=== PATIENT | male | born 1950 | race Caucasian/White ===

== ENCOUNTER → 2018-06-15 08:37 | Outpatient (CLI) | payer SELFPAY ==
[2018-06-15 10:15] LABS: Alanine Aminotransferase 32 IU/L (21-72); Albumin 4.2 g/dL (3.5-5.0); Alkaline Phosphatase 84 U/L (38-126); Aspartate Aminotransferase 18 IU/L (17-59); BUN Creatinine Ratio 17.8 (6-22); Bilirubin Total 0.6 mg/dL (0.2-1.3); Blood Urea Nitrogen 16 mg/dL (9-20); Calcium 9.1 mg/dL (8.4-10.2); Carbon Dioxide 30 mmol/L (22-32); Chloride 101 mmol/L (98-107); Cholesterol 176 mg/dL (140-199); Estimated Glomerular Filt Rate > 60.0 mL/min (>60); Globulin 2.1 g/dL (1.7-4.1); Glucose 111 mg/dL (80-110); HDL Cholesterol 68 mg/dL (40-60); HEMOLYSIS < 15 (0-50); LDL Cholesterol Calculated 95 mg/dL (<100); Potassium 4.4 mmol/L (3.4-5.1); Sodium 140 mmol/L (137-145); Total Protein 6.3 g/dL (6.3-8.2); Triglycerides 64 mg/dL (35-150); Uric Acid 8.2 mg/dL (3.5-8.5)
[2018-06-15 10:37] LABS: Prostate Specific Antigen Scrn 5.05 ng/mL (0.1-4.0)
== END ==
PROVIDERS: PCP Internal Medicine; Visit Provider Internal Medicine
DX: G56.03 Carpal tunnel syndrome, bilateral upper limbs (principal); I10 Essential (primary) hypertension; M1A.9XX0 Chronic gout, unspecified, without tophus (tophi)
CPT/HCPCS: 36415; 80053; 80061; 84550; G0103

== ENCOUNTER → 2018-06-17 12:40 | Outpatient (CLI) | payer SELFPAY ==
[2018-06-21 14:50] LABS: PSA Free % 13 % (calc) (> 25); PSA, Total 5.4 ng/mL (< 4.1)
== END ==
PROVIDERS: PCP Internal Medicine; Visit Provider Internal Medicine
DX: R97.20 Elevated prostate specific antigen [PSA] (principal)
CPT/HCPCS: 36415; 84153; 84154

== ENCOUNTER 2018-10-04 15:05 | Emergency (ER) | payer SELFPAY ==
[2018-10-04] VITALS (18 sets, daily range): BP systolic 75–179; BP diastolic 45–116; PULSE 59–144; RESP 14–22; TEMP 36.7; O2SAT 97–100; BMI 39.3
--- NOTE | 2018-10-04 15:19 | DI.RAD.S_ITS ---
PROCEDURE: XR CHEST 1V INDICATIONS: chest pain TECHNIQUE: One view of the chest was acquired. COMPARISON: None. FINDINGS: Surgical changes and devices: None. Lungs and pleura: No pleural effusions or pneumothorax. Lungs are clear. Mediastinum: Mediastinal contours appear normal. Heart size is enlarged. Bones and chest wall: No suspicious bony lesions. Overlying soft tissues appear unremarkable. IMPRESSION: No acute cardiopulmonary pathology. Dictated by: Brock Quijano M.D. on 10/04/2018 at 15:55 Approved by: Brock Quijano M.D. on 10/04/2018 at 15:58
[2018-10-04 15:28] LABS: Add Manual Diff / Slide Review NO; Basophils Percent Auto 0.6 % (0-2); Eosinophils Percent Auto 3.5 % (2-4); Hematocrit 49.8 % (41-53); Hemoglobin 16.7 g/dL (13.5-17.5); Lymphocytes Percent Auto 34.7 % (25-40); Mean Corpuscular HGB Conc 33.6 % (30-36); Mean Corpuscular Hemoglobin 31.4 PG (26-34); Mean Corpuscular Volume 93.3 fL (80-100); Monocytes Percent Auto 7.3 % (3-14); Neutrophils Absolute Auto 5200 /uL (1500-7000); Neutrophils Percent Auto 53.9 % (50-75); Platelet Count 295 X10^3/uL (150-400); Red Blood Cell Count 5.33 X10^6/uL (4.5-5.9); Red Cell Distribution Width 13.3 % (11.6-14.8); White Blood Cell Count 9.7 X10^3/uL (4.5-11.0)
--- NOTE | 2018-10-04 15:28 | ED.CHESTPAIN ---
HPI - Chest Pain General Chief Complaint: Chest Pain Stated Complaint: chest pain Time Seen by Provider: 10/04/18 15:23 Source: patient Mode of arrival: ambulatory Limitations: no limitations History of Present Illness HPI narrative: Patient is a 67-year-old male who presents with chest pain. He is in atrial flutter. He has a started at 2:00 p.m.. He denies dizziness or lightheadedness. He has no shortness of breath. He does have some chest discomfort. He denies history of atrial flutter. He states he does have hard to control blood pressure and to metoprolol that. Is feeling fine earlier this morning. He has been well over the last few weeks he has never experienced this before. MD complaint: chest pain Duration: constant Severity: moderate Relieving factors: nothing Related Data Previous Rx's Medication Instructions Recorded metoprolol succinate 100 mg PO QDAY #90 ter 04/11/18 losartan 100 mg tablet 100 mg PO DAILY #30 tab 08/23/18 felodipine 5 mg PO QDAY #90 tab 08/29/18 Allergies Allergy/AdvReac Type Severity Reaction Status Date / Time clindamycin Allergy Unknown Verified 10/04/18 15:18 benazepril [BENAZEPRIL] AdvReac Intermediate skin face Verified 10/04/18 15:18 change lisinopril AdvReac Intermediate insomnia, Verified 10/04/18 15:18 irritability amlodipine [AMLODIPINE] AdvReac Mild fatigue Verified 10/04/18 15:18 Review of Systems Review of Systems GENERAL: Denies chills, fatigue, malaise, fever, sweats, travel HEENT: Denies sinus pain, ear pain, sore throat, difficulty swallowing, neck pain RESPIRATORY: Denies dyspnea, cough, wheezing, hemoptysis, sputum. CARDIOVASCULAR: See HPI GASTROINTESTINAL: Denies nausea, vomiting, abdominal pain, diarrhea, constipation, melena. : Denies dysuria, frequency, incontinence, hematuria, urinary retention, flank pain. MUSCULOSKELETAL: Denies weakness, joint pain, or bony pain SKIN: No rash, no erythema, no pruritus NEUROLOGIC: Denies weakness, dizziness, headache, numbness, change in speech, confusion PSYCHIATRIC: No concerning psychosocial issues. 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 rao/gnosticism: [employer] travel history: over 6 months ago ([place]) leisure activities: sports (Tennis, Pickleball.) and other (TV) Smoking Status: Never smoker Tobacco: How many years used: 0 quit status: quit date established (Never Started) second hand exposure: Yes (Childhood) alcohol intake: current (1-2 glass of Wine daily) substance use type: does not use Exam Initial Vital Signs Initial Vital Signs: Vital Signs Temperature 98.0 F 10/04/18 15:05 Pulse Rate 143 H 10/04/18 15:05 Respiratory Rate 21 10/04/18 15:05 Blood Pressure 160/116 H 10/04/18 15:05 Pulse Oximetry 97 10/04/18 15:05 GENERAL: Alert elderly male no acute distress HEENT: Head atraumatic,EOMI, pupils reactive, CARDIOVASCULAR: Tachycardic irregularly irregular no murmur RESPIRATORY: Breath sounds equal bilaterally, no wheezes rales or rhonchi. ABDOMEN: Soft, nontender. Normoactive bowel sounds all 4 quadrants. No guarding or rebound. EXTREMITIES: Normal range of motion, no clubbing or edema. Neurovascularly intact NEUROLOGICAL: Alert and oriented x4.Normal gait and speech. Cranial nerves II through XII grossly intact. SKIN: Warm, dry, no laceration, no petechiae, no rashes or lesions. Procedures Cardioversion Indication: Atrial flutter with RVR Cardiac rhythm prior to cardioversion: Atrial flutter with RVR Stability: Stable Number of attempts (shocks): 2 Joules used: 150 (1.) and 200 (2.) Cardiac rhythm post-cardioversion: Normal sinus rhythm rate 73 Patient tolerated procedure sedation: Well and No complications Procedural Sedation Patient Age: Patient is 5yrs or older Indication: other ASA Class: III Mallampati Airway Classification: Class III Preparation: quality assurance monitor final applied, pulse oximeter, capnometry used and supplemental O2 applied IV Etomidate dose (mg): 10 Time of Sedation (Min): 15 ED Sedation Level: Moderate (Concious) Patient Tolerated Procedure: Well and No complications Complications: none Course Orders Ordered: ED Orders 10/04/18 15:17 Complete Blood Count AUTO DIFF Stat Comprehensive Metabolic Panel Stat Lipase Stat Partial Thromboplastin Time Stat Prothrombin Time INR Stat Troponin & CK Cardiac Panel Stat 10/04/18 15:19 XR chest 1V Stat EKG-12 Lead Stat Discontinued Medications Aspirin (Aspirin Chew) 324 mg PO NOW ONE Stop: 10/04/18 16:48 Last Admin: 10/04/18 17:25 Dose: 324 mg Diltiazem HCl (Cardizem) 20 mg IV NOW ONE Stop: 10/04/18 15:35 Last Admin: 10/04/18 15:39 Dose: 10 mg Etomidate (Amidate) 10 mg IV NOW ONE Stop: 10/04/18 16:23 Last Admin: 10/04/18 16:26 Dose: 10 mg Sodium Chloride (Normal Saline 0.9%) 1,000 mls @ 1,000 mls/hr IV BOLUS ONE Stop: 10/04/18 16:33 Last Infusion: 10/04/18 17:26 Dose: 0 mls/hr Admin: 10/04/18 15:40 Dose: 1,000 mls/hr Metoprolol Tartrate (Lopressor) 5 mg IV NOW ONE Stop: 10/04/18 16:02 Last Admin: 10/04/18 16:05 Dose: 5 mg Vital Signs - 8 hr 10/04/18 15:05 10/04/18 15:39 10/04/18 16:25 Temperature 98.0 F Pulse Rate 143 H 144 H 139 H Respiratory Rate 21 19 Blood Pressure 160/116 H 179/106 H Blood Pressure [Right Arm] 140/99 H Pulse Oximetry 97 100 10/04/18 16:30 10/04/18 16:35 10/04/18 16:40 Temperature Pulse Rate 79 78 73 Respiratory Rate 16 16 22 Blood Pressure Blood Pressure [Right Arm] 179/90 H 154/89 H 144/78 H Pulse Oximetry 99 98 98 10/04/18 16:43 10/04/18 16:45 10/04/18 16:50 Temperature Pulse Rate 138 H 76 71 Respiratory Rate 14 18 16 Blood Pressure Blood Pressure [Right Arm] 129/71 127/70 Pulse Oximetry 98 98 10/04/18 16:55 10/04/18 17:00 10/04/18 17:05 Temperature Pulse Rate 76 72 76 Respiratory Rate 17 17 16 Blood Pressure Blood Pressure [Right Arm] 105/50 L 100/45 L 88/64 L Pulse Oximetry 97 98 97 10/04/18 17:10 10/04/18 17:17 10/04/18 17:22 Temperature Pulse Rate 68 65 59 L Respiratory Rate 18 20 17 Blood Pressure Blood Pressure [Right Arm] 75/49 L 80/51 L 84/67 L Pulse Oximetry 97 98 97 10/04/18 17:27 10/04/18 17:35 10/04/18 17:49 Temperature Pulse Rate 62 59 L 64 Respiratory Rate 18 16 18 Blood Pressure 120/74 Blood Pressure [Right Arm] 104/62 109/70 Pulse Oximetry 98 98 98 MDM - Chest Pain Lab Data Attestation: I reviewed the patient's lab results. Result diagrams: 10/04/18 15:17 10/04/18 15:17 Lab Results 10/04/18 10/04/18 10/04/18 Range/Units 15:17 15:17 15:17 WBC 9.7 (4.5-11.0) X10^3/uL RBC 5.33 (4.5-5.9) X10^6/uL Hgb 16.7 (13.5-17.5) g/dL Hct 49.8 (41-53) % MCV 93.3 (80-100) fL MCH 31.4 (26-34) PG MCHC 33.6 (30-36) % RDW 13.3 (11.6-14.8) % Plt Count 295 (150-400) X10^3/uL Neut % (Auto) 53.9 (50-75) % Lymph % (Auto) 34.7 (25-40) % Morton % (Auto) 7.3 (3-14) % Eos % (Auto) 3.5 (2-4) % Baso % (Auto) 0.6 (0-2) % Neut # (Auto) 5200 (4374-7045) /uL PT 11.4 (10.1-12.7) SECONDS INR 1.0 (0.9-1.3) APTT 34 (26.4-36.2) SECONDS Sodium 144 (137-145) mmol/L Potassium 4.0 (3.4-5.1) mmol/L Chloride 105 (98-107) mmol/L Carbon Dioxide 20 L (22-32) mmol/L BUN 15 (9-20) mg/dL Creatinine 0.80 (0.66-1.25) mg/dL Estimated GFR > 60.0 (>60) mL/min BUN/Creatinine Ratio 18.8 (6-22) Glucose 189 H (80-110) mg/dL Calcium 9.2 (8.4-10.2) mg/dL Total Bilirubin 0.4 (0.2-1.3) mg/dL AST 24 (17-59) IU/L ALT 34 (21-72) IU/L Alkaline Phosphatase 98 (38-126) U/L Total Creatine Kinase 127 (55-170) U/L CK-MB (CK-2) 1.53 (<2.37) ng/mL CK-MB (CK-2) Rel Index 1.2 L (1.5-5.0) % Troponin I < 0.012 (0.01-0.034) ng/mL Total Protein 7.4 (6.3-8.2) g/dL Albumin 4.9 (3.5-5.0) g/dL Globulin 2.5 (1.7-4.1) g/dL Albumin/Globulin Ratio 2.0 (1.0-2.8) Lipase 63 (23-300) U/L MDM Narrative Medical decision making narrative: Discharge Plan Departure Patient Disposition: Home Clinical Impression: Atrial flutter with rapid ventricular response Discharge Date/Time: 10/04/18 17:49 Interventions: ED Discharge Assessment Last Done: 10/04/18 17:49 Instructions: DI for Atrial Flutter Activity Restrictions/Additional Instructions: *You have been diagnosed with atrial flutter with rapid ventricular rate *What to do: He will need follow-up with your PCP *Continue to take medications as directed Aspirin 81 mg daily to help prevent stroke *Follow up with your primary care provider in 2-3 days *Return to ER if you should have chest pain heart palpitations dizziness lightheadedness or any new, worsening or concerning symptoms Prescriptions: No Action metoprolol succinate 100 mg tablet extended release 24 hr 100 mg PO QDAY Qty: 90 RF: 3 losartan 100 mg tablet 100 mg PO DAILY Qty: 30 RF: 5 felodipine 5 mg tablet extended release 24 hr 5 mg PO QDAY Qty: 90 RF: 3 Referrals: Godfrey Thao MD [Primary Care Provider] -
--- NOTE | 2018-10-04 15:30 | PC.NURSE ---
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
[2018-10-04 15:33] LABS: Prothrombin Time 11.4 SECONDS (10.1-12.7)
[2018-10-04 15:36] LABS: PTT Partial Thromboplastin Tim 34 SECONDS (26.4-36.2)
[2018-10-04 15:38] LABS: Alanine Aminotransferase 34 IU/L (21-72); Albumin 4.9 g/dL (3.5-5.0); Alkaline Phosphatase 98 U/L (38-126); Aspartate Aminotransferase 24 IU/L (17-59); BUN Creatinine Ratio 18.8 (6-22); Bilirubin Total 0.4 mg/dL (0.2-1.3); Blood Urea Nitrogen 15 mg/dL (9-20); Calcium 9.2 mg/dL (8.4-10.2); Carbon Dioxide 20 mmol/L (22-32); Chloride 105 mmol/L (98-107); Creatine Kinase 127 U/L (55-170); Estimated Glomerular Filt Rate > 60.0 mL/min (>60); Globulin 2.5 g/dL (1.7-4.1); Glucose 189 mg/dL (80-110); HEMOLYSIS 18 (0-50); Lipase 63 U/L (23-300); Sodium 144 mmol/L (137-145); Total Protein 7.4 g/dL (6.3-8.2)
[2018-10-04] MEDS: dilTIAZem 5 MG/ML SDV 20 MG IV (15:39)
[2018-10-04] MEDS: SODIUM CHLORIDE 0.9% 1,000 ML 1000 ML IV (15:40)
[2018-10-04 15:49] LABS: Troponin I < 0.012 ng/mL (0.01-0.034)
[2018-10-04 15:53] LABS: CKMB % Relative Index 1.2 % (1.5-5.0); Creatine Kinase MB 1.53 ng/mL (<2.37)
[2018-10-04] MEDS: METOPROLOL TARTRATE 5 MG/5 ML INJ IV (16:05)
[2018-10-04] MEDS: ETOMIDATE 2 MG/ML VIAL 10 MG IV (16:26)
--- NOTE | 2018-10-04 17:16 | PC.NURSE ---
notified of bp
[2018-10-04] MEDS: ASPIRIN 81 MG TAB 324 MG PO (17:25)
== END 2018-10-04 17:49 | disposition home or self-care (01) ==
PROVIDERS: Emergency Provider Emergency Medicine; Family Provider Internal Medicine; PCP Internal Medicine
DX: I48.91 Unspecified atrial fibrillation (principal)
CPT/HCPCS: 36591; 71045; 80053; 82550; 82553; 83690; 84484; 85025; 85610; 85730; 92960; 93005; 94770; 96361; 96374; 96375; 99152; 99285

== ENCOUNTER → 2018-11-08 16:06 | Outpatient (CLI) | payer SELFPAY ==
[2018-11-08 19:08] LABS: Free T4, Direct Thyroxine 1.17 ng/dL (0.78-2.19)
[2018-11-08 19:22] LABS: Thyroid Stimulating Hormone 1.41 uIU/mL (0.47-4.68)
== END ==
PROVIDERS: Family Provider Internal Medicine; PCP Internal Medicine; Visit Provider Internal Medicine
DX: I48.92 Unspecified atrial flutter (principal); R97.20 Elevated prostate specific antigen [PSA]
CPT/HCPCS: 36415; 84153; 84439; 84443

== ENCOUNTER → 2018-11-14 09:18 | Outpatient (CLI) | payer SELFPAY ==
--- NOTE | 2018-11-14 09:24 | DI.ECHO.S_ITS ---
[facility]---------+ [facility] +---------+ : : [address] : : : [place], [place] : : : : [id number] : : : : Phone: [phone] Echocardiogram Report + + :Name: RODNEY BROWN Study Date: 11/14/2018 Height: 72 in : :[facility] Exam Location: [facility] Weight: 284 lb : : Gender: Male BSA: 2.5 m2 : :: 1950 Age: 67 yrs BP: 132/90 mmHg: :Reason For Study: AFLUTTER : : Performed By: Robinson Hodge : :Referring: RODNEY JOSHI R : + + Interpretation Summary 1) Normal left ventricular size, thickness, wall motion, and systolic function (EF 55-60%). 2) Normal right ventricular size and function. 3) The left atrium is moderately dilated. 4) There is mild mitral regurgitation. 5) The ascending aorta is mildly enlarged at 4.2cm. 6) No prior Echo available for comparison. Procedure: A two-dimensional transthoracic echocardiogram with color flow and Doppler was performed. The study quality was technically adequate. There is no prior echocardiogram noted for this patient. The patient was in normal sinus rhythm during the exam. Left Ventricle: The left ventricle is normal in size. There is normal left ventricular wall thickness. The ejection fraction is estimated to be 55-60%. Left ventricular systolic function is normal. There are no focal wall motion abnormalities. Right Ventricle: The right ventricle is normal in size and function. Atria: The left atrium is moderately dilated. Right atrial size is normal. The interatrial septum is intact with no evidence for an atrial septal defect. Mitral Valve: The mitral valve leaflets are mildly calcified. There is mild mitral regurgitation. Aortic Valve: The aortic valve is normal in structure and function. The aortic valve is trileaflet. The aortic valve opens well. There is no aortic valve stenosis. No aortic regurgitation is present. Tricuspid Valve: The tricuspid valve is normal in structure and function. There is trace tricuspid regurgitation. Pulmonary artery pressures cannot be estimated because of the lack of a measurable TR jet velocity. Pulmonic Valve: The pulmonic valve is normal in structure and function. There is trace pulmonic regurgitation. Great Vessels: The aortic root is normal size. The ascending aorta is mildly enlarged. The pulmonary artery is normal size. The IVC is of normal diameter and collapses greater than 50% with a sniff. This suggests a low right atrial pressure of 3 mm Hg. Pericardium/ Pleura There is no pericardial effusion. There is no pleural effusion. MMode/2D Measurements & Calculations LVIDd: 4.8 cm LVOT diam: 2.4 cm LVIDs: 3.1 cm Ao root diam: 3.3 cm FS: 36.4 % Aortic Jxn: 3.2 cm EPSS: 0.44 cm asc Aorta Diam: 4.2 cm IVSd: 1.2 cm Ao Arch Diam (Prox Trans): 2.7 cm LVPWd: 1.2 cm LV marlow. diameter/BSA (cm/m^2): 1.9 LV sys. diameter/BSA (cm/m^2): 1.2 LA dimension: 4.4 cm RA long axis: 4.4 cm LA A2 area: 23.8 cm2 RA area: 17.2 cm2 LA A4 area: 27.2 cm2 RA vol: 57.3 ml LA length (vol): 6.3 cm RA : 23.2 ml/m2 LA vol: 86.7 ml IVC diam: 1.5 cm LA vol index: 35.0 ml/m2 Doppler Measurements & Calculations Ao V2 max: 115.5 cm/sec LVOT Max Rajesh: 77.3 cm/sec Ao V2 mean: 93.7 cm/sec LV V1 max P.4 mmHg Ao max P.3 mmHg LV V1 VTI: 16.9 cm Ao mean P.7 mmHg BONIFACIO(I,D): 3.0 cm2 Ao V2 VTI: 25.5 cm BONIFACIO(V,D): 3.0 cm2 sev ratio: 0.66 BONIFACIO indexed to BSA (cm^2/m^2): 1.2 MV E max rajesh: 59.7 cm/sec PA V2 max: 67.6 cm/sec MV A max rajesh: 74.3 cm/sec PA V2 mean: 48.7 cm/sec MV E/A: 0.80 PA mean P.0 mmHg Med Peak E' Rajesh: 5.1 cm/sec PA pr(Accel): 39.1 mmHg E/E' med: 11.8 PA Accel Time: 0.10 sec Lat Peak E' Rajesh: 6.9 cm/sec E/E' lat: 8.6 E/e' average: 10.2 MV dec time: 0.18 sec MR PISA radius: 0.49 cm SV(LVOT): 75.6 ml Reading Physician:01:10 PM
== END ==
PROVIDERS: PCP Internal Medicine; Visit Provider Internal Medicine
DX: I34.0 Nonrheumatic mitral (valve) insufficiency (principal); I48.92 Unspecified atrial flutter
CPT/HCPCS: 93306

== ENCOUNTER 2020-05-12 06:27 | Emergency (ER) | payer SELFPAY ==
[2020-05-12 06:35] VITALS: BP 161/105; PULSE 84; RESP 20; TEMP 36.9; O2SAT 98; BMI 33.9
--- NOTE | 2020-05-12 06:43 | DI.RAD.S_ITS ---
PROCEDURE: XR CHEST 1V INDICATIONS: palpitations TECHNIQUE: One view of the chest was acquired. COMPARISON: [facility], KERRY, ABDOMEN ACUTE SERIES, 01/30/2016, 15:40. [facility], KERRY, XR CHEST 1V, 10/04/2018, 15:57. FINDINGS: Surgical changes and devices: None. Lungs and pleura: Lungs are abnormal with an interstitial prominence and focal alveolar consolidation at the right lung base.. No pleural effusions or pneumothorax. Mediastinum: Mediastinal contours appear normal. Heart size is at the upper limits of normal. Bones and chest wall: No suspicious bony lesions. Overlying soft tissues appear unremarkable. IMPRESSION: Suspect prior smoking history given the pattern of interstitial prominence present and reference to comparison prior plain films. Mild or early pneumonia is suspected at the right lower lung in an area previously normal in aeration. It is unclear, however, whether lung scarring in that area has developed and scarring alternatively could explain that appearance. Dictated by: Layton Menon M.D. on 05/12/2020 at 7:35 Approved by: Layton Menon M.D. on 05/12/2020 at 7:37
[2020-05-12 07:00] VITALS: BP 152/94; PULSE 68; RESP 14
[2020-05-12 07:06] LABS: Add Manual Diff / Slide Review NO; Basophils Absolute Auto 100 /uL (0-100); Basophils Percent Auto 1.1 % (0-2); Eosinophils Absolute Auto 400 /uL (0-450); Eosinophils Percent Auto 5.5 % (2-4); Hematocrit 44.7 % (41-53); Hemoglobin 15.2 g/dL (13.5-17.5); Lymphocytes Absolute Auto 2300 /uL (1100-4500); Lymphocytes Percent Auto 35.1 % (25-40); Mean Corpuscular HGB Conc 34.1 % (30-36); Mean Corpuscular Hemoglobin 30.7 PG (26-34); Monocytes Absolute Auto 700 /uL (0-900); Monocytes Percent Auto 9.7 % (3-14); Neutrophils Absolute Auto 3300 /uL (1500-7000); Neutrophils Percent Auto 48.6 % (50-75); Platelet Count 216 X10^3/uL (150-400); Red Blood Cell Count 4.97 X10^6/uL (4.5-5.9); Red Cell Distribution Width 13.4 % (11.6-14.8); White Blood Cell Count 6.7 X10^3/uL (4.5-11.0)
[2020-05-12] MEDS: SODIUM CHLORIDE 0.9% 1,000 ML 150 ML IV (07:06)
[2020-05-12 07:08] LABS: Alanine Aminotransferase 19 IU/L (<50); Albumin 4.3 g/dL (3.5-5.0); Alkaline Phosphatase 80 U/L (38-126); Aspartate Aminotransferase 23 IU/L (17-59); BUN Creatinine Ratio 20.5 (6-22); Bilirubin Total 0.7 mg/dL (0.2-1.3); Blood Urea Nitrogen 15 mg/dL (9-20); Carbon Dioxide 23 mmol/L (22-32); Chloride 104 mmol/L (98-107); Creatine Kinase 97 U/L (55-170); Estimated Glomerular Filt Rate > 60.0 mL/min (>60); Globulin 2.2 g/dL (1.7-4.1); Glucose 107 mg/dL (80-110); HEMOLYSIS 38 (0-50); Lipase 50 U/L (23-300); Sodium 135 mmol/L (137-145); Total Protein 6.5 g/dL (6.3-8.2)
[2020-05-12 07:10] LABS: D Dimer < 200 ng/mL (<230)
[2020-05-12 07:20] LABS: NT-proBNP (BNP-Adult 18+) 115 pg/mL (<125); Troponin I < 0.012 ng/mL (0.01-0.034)
[2020-05-12 07:30] VITALS: BP 169/86; PULSE 66; RESP 16
[2020-05-12 08:00] VITALS: BP 162/78; PULSE 60; RESP 15; O2SAT 96
--- NOTE | 2020-05-12 08:00 | ED_ITS ---
HPI - Arrhythmia/Palpitations General Chief Complaint: Arrhythmia/Palpitations Stated Complaint: afib Time Seen by Provider: 05/12/20 06:30 Source: patient Mode of arrival: Ambulatory Limitations: no limitations History of Present Illness HPI narrative: CC:Palpitations HPI: Patient is a 69-year-old male who has a history of atrial fibrillation and hypertension. He is currently on Eliquis for his atrial fib. His atrial fibrillation is paroxysmal. Two nights ago he developed rapid heart rate. He drink extra fluids and by the morning his atrial fibrillation and palpitations had resolved. Yesterday he was fine all day. However, at nighttime he again developed palpitations with rapid heart rate running approximately 98. He drank fluids but in the morning he still had an irregular rapid heart rate. He denied any chest pain or chest discomfort, headache, dizziness or shortness of breath. He denied any neck discomfort, jaw discomfort shoulder or arm discomfort. He is currently on Toprol XL 100 mg for his heart rate. He was also complaining and bothered by his systolic and diastolic blood pressures. Both were higher than he has experience. He denied any chest pain headache change in vision or e xcessive shortness of breath. He has had no recent fever chills or sweats. No change in vision no abdominal pain nausea vomiting no urinary symptoms. When I was interviewing the patient is heart rate was 66 blood pressure 152/94. He denies ever smoking cigarettes drinks alcohol socially with a glass of wine with dinner and no use of drugs or marijuana. He denies being a diabetic having a previous stroke or myocardial infarction or history of asthma. He does admit to history of hypertension. Related Data Home Medications Medication Instructions Recorded Confirmed apixaban 5 mg tablet 5 mg PO BID 02/01/19 triamterene 37.5 1 cap PO DAILY 02/02/19 mg-hydrochlorothiazide 25 mg capsule candesartan 4 mg tablet 4 mg PO DAILY 11/07/19 11/07/19 Previous Rx's Medication Instructions Recorded metoprolol succinate 100 mg PO QDAY #90 ter 04/11/18 diltiazem HCl [Cardizem CD] 120 mg PO DAILY #10 cap 05/12/20 diltiazem HCl [Cardizem] 30 mg PO TID PRN #20 tab 05/12/20 Allergies Allergy/AdvReac Type Severity Reaction Status Date / Time clindamycin Allergy Unknown Verified 11/07/19 10:29 benazepril [BENAZEPRIL] AdvReac Intermediate skin face Verified 11/07/19 10:29 change lisinopril AdvReac Intermediate insomnia, Verified 11/07/19 10:29 irritability amlodipine [AMLODIPINE] AdvReac Mild fatigue Verified 11/07/19 10:29 Review of Systems Review of Systems Narrative: Review of systems were all negative except for those mentioned in the history of present illness. 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 rao/sikh: Shinto travel history: over 6 months ago ([place]) leisure activities: sports (Tennis, Pickleball.) and other (TV) Smoking Status: Never smoker Tobacco: How many years used: 0 quit status: quit date established (Never Started) second hand exposure: Yes (Childhood) alcohol intake: current (1-2 glass of Wine daily) substance use type: does not use Smoking Status: Never smoker alcohol intake frequency: holidays/special occasions only Substance Use Type: does not use Exam Narrative Exam Narrative: PHYSICAL EXAM: CONSTITUTIONAL: Awake, Alert, Oriented, Coherent, Cooperative mildly anxious. HEAD: AT/NC EENT: PERRL, FROM of eyes, no discharge, no nystagmus, conjunctiva without pallor NOSE:No epistaxis or nasal drainage MOUTH:Oral mucosa is moist and pink. NECK: Supple, no obvious JVD, Trachea is midline without stridor, . SPINE: Palpationof the cervical, Thoracic, Lumbar or Sacral spine reveals no gross deformity or tenderness. No CVA tenderness. THORAX: No deformity, retractions, chest wall tenderness. LUNGS: Clear, symmetrical breath sounds without respiratory distress. HEART: Normal heart tones, regular rhythm and rate without murmur. ABDOMEN: Soft, non-tender, no guarding, rebound, rigidity or palpable mass. EXTREMITIES: No edema, deformity, tenderness or cyanosis. SKIN: No rash, bruising, petechiae or purpura. NEURO: Awake, alert, oriented, conversive, cranial nerves II-XII are symmetrical , moves all 4 extremities and is ambulatory. MENTAL HEALTH: Does not appear anxious or depressed. Initial Vital Signs Initial Vital Signs: Vital Signs Temperature 98.5 F 05/12/20 06:35 Pulse Rate 84 05/12/20 06:35 Respiratory Rate 20 05/12/20 06:35 Blood Pressure 161/105 H 05/12/20 06:35 Pulse Oximetry 98 05/12/20 06:35 Course Course Course Narrative: 804: Getting ready to discharge the patient the patient's showed me his record of his blood pressures and rapid heart rate. His rapid heart rate is most of the time in the range of 70-80 with a rare 98. The heart rate never went higher than 100. We worry about the heart rate with atrial fibrillation when the ventricular rate is greater than 120. It is not unusual with atrial fib to have episodes in which the heart rate runs between 100 and 110. He was informed that if he develops discomfort anxiety when his heart rate is running greater than 100 he can take the Cardizem. Orders Ordered: Discontinued Medications Diltiazem HCl (Cardizem Cd) 120 mg PO NOW ONE Stop: 05/12/20 07:56 Last Admin: 05/12/20 08:07 Dose: Not Given Documented by: BRENDA Sodium Chloride (Normal Saline 0.9%) 1,000 mls @ 150 mls/hr IV CONT MEGHA Last Admin: 05/12/20 07:06 Dose: 150 mls/hr Documented by: CRIS Vital Signs Vital signs: Vital Signs - 8 hr 05/12/20 06:35 05/12/20 07:00 05/12/20 07:30 Temperature 98.5 F Pulse Rate 84 68 66 Respiratory Rate 20 14 16 Blood Pressure 161/105 H 152/94 H 169/86 H Pulse Oximetry 98 MDM - Arrhythmia/Palpitations Medical Records Attestation: I reviewed the patient's medical records. Lab Data Attestation: I reviewed the patient's lab results. Result diagrams: 05/12/20 06:50 05/12/20 06:50 Labs: Lab Results 05/12/20 05/12/20 05/12/20 Range/Units 06:50 06:50 06:50 WBC 6.7 (4.5-11.0) X10^3/uL RBC 4.97 (4.5-5.9) X10^6/uL Hgb 15.2 (13.5-17.5) g/dL Hct 44.7 (41-53) % MCV 90.0 (80-100) fL MCH 30.7 (26-34) PG MCHC 34.1 (30-36) % RDW 13.4 (11.6-14.8) % Plt Count 216 (150-400) X10^3/uL Neut % (Auto) 48.6 L (50-75) % Lymph % (Auto) 35.1 (25-40) % [place] % (Auto) 9.7 (3-14) % Eos % (Auto) 5.5 H (2-4) % Baso % (Auto) 1.1 (0-2) % Neut # (Auto) 3300 (9369-3541) /uL Lymph # (Auto) 2300 (7110-2064) /uL [place] # (Auto) 700 (0-900) /uL Eos # (Auto) 400 (0-450) /uL Baso # (Auto) 100 (0-100) /uL D-Dimer < 200 (<230) ng/mL Sodium 135 L (137-145) mmol/L Potassium 4.0 (3.4-5.1) mmol/L Chloride 104 (98-107) mmol/L Carbon Dioxide 23 (22-32) mmol/L BUN 15 (9-20) mg/dL Creatinine 0.73 (0.66-1.25) mg/dL Estimated GFR > 60.0 (>60) mL/min BUN/Creatinine Ratio 20.5 (6-22) Glucose 107 (80-110) mg/dL Calcium 9.0 (8.4-10.2) mg/dL Total Bilirubin 0.7 (0.2-1.3) mg/dL AST 23 (17-59) IU/L ALT 19 (<50) IU/L Alkaline Phosphatase 80 (38-126) U/L Total Creatine Kinase 97 (55-170) U/L CK-MB (CK-2) TNP CK-MB (CK-2) Rel Index TNP Troponin I < 0.012 (0.01-0.034) ng/mL NT-Pro-B Natriuret Pep 115 (<125) pg/mL Total Protein 6.5 (6.3-8.2) g/dL Albumin 4.3 (3.5-5.0) g/dL Globulin 2.2 (1.7-4.1) g/dL Albumin/Globulin Ratio 2.0 (1.0-2.8) Lipase 50 (23-300) U/L ECG Data Attestation: I personally reviewed and interpreted this ECG as follows: Interpretation: The patient's EKG obtained at 6:32 a.m. reveals a normal sinus rhythm with a QS wave in lead III and V1. T-waves are inverted in lead III and V1. There are no other acute diagnostic ST segment changes. The patient's ventricular rate is 82 p.r. interval is borderline prolonged at 202 milliseconds QRS duration is mildly prolonged at 104 milliseconds QTC is 434 milliseconds. The EKG otherwise looks normal. Discharge Plan Departure Patient Disposition: Home Clinical Impression: Essential hypertension, Palpitations, Paroxysmal atrial fibrillation Discharge Date/Time: 05/12/20 08:33 Activity Restrictions/Additional Instructions: 1. As per our discussion, try and check your blood pressure at least once a day and trying check it at about the same time per day. G half your diastolic blood pressure and systolic blood pressure values on graph paper. Find out from your computer applications instructor and/or primary care physician at what range they want her diastolic blood pressure and systolic blood pressure in draw lines straight across the graph paper so that you can see the pattern where your blood pressure falls. Your blood pressure medicine does not keep your blood pressure in the range 100% of the time. The majority of time it does. You will be able to see this pattern on the graph paper. 2. The more you check your blood pressure your blood pressure is going to continue to rise. If you are subconsciously anxious or worried about something your blood pressure will be high. We worry about blood pressure especially when it is above 200 if you are symptomatic. The symptoms are headache chest pain shortness of breath weakness and fatigue changes in your vision or any potential signs of a stroke. Otherwise your blood pressure may be just incidentally high because of other life circumstances. Graph the result on year graph paper record. 3. Call and make a follow-up appointment with your primary care physician within 48-72 hours and or your computer applications instructor. You may need to have a repeat Holter monitor to check how often your flipping in and out of atrial fib and normal sinus rhythm. 4. Be sure you are taking your Eliquis to prevent any possible stroke. 5. Continue to take the rest of your medications. 6. If you develop a rapid heart rate/palpitations greater than 100-120, you can take Cardizem 30 mg tablet, 1 tab orally. If you develop palpitations and rapid heart rate associated with chest pain that lasts longer than 10-15 minutes, shortness of breath and or dizziness or lightheadedness, you need to return to the emergency department. 7. Your EKG reveals a normal sinus rhythm without any abnormalities. 8. While on the Cardizem if you develop excessive dizziness lightheadedness, feeling faint or excessive fatigue you need to discontinue the medication and follow-up with your physicians. This medicine is prescribed to control your break through episodes of rapid atrial fib. Prescriptions: New diltiazem HCl [Cardizem CD] 120 mg capsule,extended release 24hr 120 mg PO DAILY Qty: 10 RF: 1 diltiazem HCl [Cardizem] 30 mg tablet 30 mg PO TID PRN (Reason: rapid breakthrough palpitations) Qty: 20 RF: 0 No Action metoprolol succinate 100 mg tablet extended release 24 hr 100 mg PO QDAY Qty: 90 RF: 3 Eliquis 5 mg tablet 5 mg PO BID RF: 0 triamterene-hydrochlorothiazid 37.5-25 mg capsule 1 cap PO DAILY RF: 0 candesartan 4 mg tablet 4 mg PO DAILY RF: 0 Referrals: Godfrey Thao MD [Primary Care Provider] -
--- NOTE | 2020-06-21 08:25 | PC.NURSE ---
late entry: per Melia RN, pt's IV Normal Saline Completed at 0800 on 05/12/2020
== END 2020-05-12 08:33 | disposition home or self-care (01) ==
PROVIDERS: Emergency Medicine; Emergency Provider Emergency Medicine; PCP Internal Medicine
DX: I10 Essential (primary) hypertension (principal); R00.2 Palpitations; I48.0 Paroxysmal atrial fibrillation; Z79.01 Long term (current) use of anticoagulants
CPT/HCPCS: 36415; 71045; 80053; 82550; 83690; 83880; 84484; 85025; 85379; 93005; 96360; 99284

== ENCOUNTER → 2021-01-27 11:54 | Outpatient (CLI) | payer SELFPAY | PROVIDERS: PCP Internal Medicine; Visit Provider Student in an Organized Health Care Education/Training Program | DX: N34.3 Urethral syndrome, unspecified (principal) | CPT/HCPCS: 87077; 87086; 87186 ==

== ENCOUNTER → 2021-02-14 09:52 | Outpatient (CLI) | payer SELFPAY ==
[2021-02-14 11:00] LABS: Alanine Aminotransferase 23 IU/L (<50); Albumin 4.3 g/dL (3.5-5.0); Albumin Globulin Ratio 1.5 (1.0-2.8); BUN Creatinine Ratio 18.8 (6-22); Bilirubin Total 0.6 mg/dL (0.2-1.3); Blood Urea Nitrogen 15 mg/dL (9-20); Calcium 9.1 mg/dL (8.4-10.2); Carbon Dioxide 27 mmol/L (22-32); Chloride 101 mmol/L (98-107); Estimated Glomerular Filt Rate > 60.0 mL/min (>60); Globulin 2.9 g/dL (1.7-4.1); Glucose 103 mg/dL (80-110); Sodium 135 mmol/L (137-145); Total Protein 7.2 g/dL (6.3-8.2)
[2021-02-14 11:03] LABS: HEMOLYSIS 94 (0-50)
[2021-02-14 11:05] LABS: Aspartate Aminotransferase 30 IU/L (17-59); Potassium 4.4 mmol/L (3.4-5.1)
[2021-02-14 11:06] LABS: Alkaline Phosphatase 69 U/L (38-126)
== END ==
PROVIDERS: PCP Internal Medicine; Referring Provider Internal Medicine Cardiovascular Disease; Visit Provider Internal Medicine Cardiovascular Disease
DX: I48.3 Typical atrial flutter (principal); I10 Essential (primary) hypertension
CPT/HCPCS: 36415; 80053

== ENCOUNTER 2021-05-14 23:32 | Emergency (ER) | payer SELFPAY ==
[2021-05-14 23:59] VITALS: BP 166/100; PULSE 86; TEMP 37.1; O2SAT 94
[2021-05-15] VITALS (9 sets, daily range): BP systolic 160–172; BP diastolic 100–102; PULSE 70–101; RESP 20–24; TEMP 37.2; O2SAT 94–98
--- NOTE | 2021-05-15 00:16 | ED_ITS ---
HPI - General Adult General Chief complaint: Abdominal Pain Stated complaint: states food poisoning Time Seen by Provider: 05/15/21 00:05 Source: patient Mode of arrival: Ambulatory History of Present Illness HPI narrative: Patient is a 70-year-old male who was on anticoagulation for atrial fibrillation who is here for what he thinks is food poisoning. He states that after eating dinner this evening he started to develop left-sided abdominal discomfort. He has not had any diarrhea. Has had some nausea but no vomiting. No prior abdominal surgeries. He states that the symptoms did not get worse when he touches his abdomen. Denies any urinary symptoms. Related Data Home Medications Medication Instructions Recorded Confirmed apixaban 5 mg tablet (Eliquis) 5 mg PO BID 02/01/19 02/06/21 triamterene 37.5 1 cap PO DAILY 02/02/19 02/06/21 mg-hydrochlorothiazide 25 mg capsule candesartan 8 mg tablet 8 mg PO DAILY 12/17/20 02/06/21 Previous Rx's Medication Instructions Recorded metoprolol succinate 100 mg 100 mg PO QDAY #90 ter 04/11/18 tablet,extended release 24 hr diltiazem HCl 120 mg 120 mg PO DAILY #10 cap 05/12/20 capsule,extended release 24 hr (Cardizem CD) diltiazem HCl 30 mg tablet 30 mg PO TID PRN #20 tab 05/12/20 (Cardizem) Allergies Allergy/AdvReac Type Severity Reaction Status Date / Time clindamycin Allergy Unknown Verified 02/06/21 14:54 benazepril [BENAZEPRIL] AdvReac Intermediate skin face Verified 02/06/21 14:54 change lisinopril AdvReac Intermediate insomnia, Verified 02/06/21 14:54 irritability amlodipine [AMLODIPINE] AdvReac Mild fatigue Verified 02/06/21 14:54 Review of Systems Constitutional Constitutional: Reports system reviewed and no additional complaints, except as documented Cardiovascular Cardiovascular: Reports system reviewed and no additional complaints, except as documented Respiratory Respiratory: Reports system reviewed and no additional complaints, except as documented Gastrointestinal Gastrointestinal: Reports as per HPI Genitourinary Genitourinary: Reports system reviewed and no additional complaints, except as documented, Denies testicular pain, Denies urinary frequency and Denies urinary hesitancy Musculoskeletal Musculoskeletal: Reports system reviewed and no additional complaints, except as documented Integumentary/Breasts Skin/Breast: Reports system reviewed and no additional complaints, except as doc umented Neurologic Neurologic: Reports system reviewed and no additional complaints, except as documented Endocrine Endocrine: Reports system reviewed and no additional complaints, except as documented Hematologic/Lymphatic On Anticoagulants: No Allergic/Immunologic Allergic/Immunologic: Reports system reviewed and no additional complaints, except as documented Patient History Medical History Atrial flutter Bilateral carpal tunnel syndrome (08/05/17) Chronic gout without tophus (06/20/15) Elevated PSA Essential hypertension Impaired glucose metabolism Left inguinal hernia Subclavian steal syndrome Surgical History Hx of laminectomy Social History marital status: number of children: 0 household members: spouse lives independently: Yes caregiver/support person: No housing: house pets and animals: No education level: college occupational status: other 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 rao/sabianism: Baptist travel history: over 6 months ago leisure activities: sports and other Smoking Status: Never smoker Tobacco: How many years used: 0 quit status: quit date established second hand exposure: Yes (Childhood) alcohol intake: current substance use type: does not use Smoking Status: Never smoker alcohol intake frequency: holidays/special occasions only Substance Use Type: does not use Exam Initial Vital Signs Initial Vital Signs: Vital Signs Temperature 98.8 F 05/14/21 23:59 Pulse Rate 86 05/14/21 23:59 Blood Pressure 166/100 H 05/14/21 23:59 Pulse Oximetry 94 05/14/21 23:59 Const General: cooperative and healthy appearing [facility] Head: normal to inspection and normocephalic Eyes General: appearance normal, both eyes and all related structures Chest Chest: normal inspection of the chest Resp Effort & Inspection: normal respiratory effort Auscultation: clear to auscultation bilaterally Cardio Rate: regular rate GI Inspection: normal to inspection Palpation: soft, No firm and No tender Skin General: no rashes or lesions noted Neuro General: patient alert, patient awake, patient oriented x3 and moves all extremities Extrem General: normal to inspection and capillary refill normal Psych Appearance: grossly normal and well kempt Course Orders Ordered: ED Orders 05/15/21 00:04 EKG-12 Lead Stat 05/15/21 00:17 CT abdomen pelvis w con Stat 05/15/21 00:23 Complete Blood Count AUTO DIFF Stat Comprehensive Metabolic Panel Stat Lipase Stat 05/15/21 00:41 Urine Microscopic Stat Discontinued Medications Hydrocodone Bitart/Acetaminophen (Hydrocodone/Acet 5/325 Prepack) 1 bottle MISC SEEINSTR ONE Stop: 05/15/21 02:13 Last Admin: 05/15/21 02:52 Dose: 1 bottle Documented by: RUDY Sodium Chloride (Normal Saline 0.9%) 1,000 mls @ 1,000 mls/hr IV BOLUS ONE Stop: 05/15/21 01:16 Last Infusion: 05/15/21 02:52 Dose: 0 mls/hr Documented by: Admin: 05/15/21 00:29 Dose: 1,000 mls/hr Documented by: RUDY Ondansetron HCl (Ondansetron 4 Mg Odt Prepack) 1 bottle MISC SEEINSTR ONE Stop: 05/15/21 02:13 Last Admin: 05/15/21 02:52 Dose: 1 bottle Documented by: RUDY Vital Signs Vital signs: Vital Signs - 8 hr 05/14/21 23:59 05/15/21 00:00 05/15/21 00:01 Temperature 98.8 F 99.0 F Pulse Rate 86 93 H 70 Respiratory Rate 20 Blood Pressure 166/100 H 169/101 H 172/100 H Pulse Oximetry 94 94 97 05/15/21 00:30 05/15/21 01:00 05/15/21 01:30 Temperature Pulse Rate 87 94 H 95 H Respiratory Rate 24 Blood Pressure Pulse Oximetry 96 95 94 05/15/21 02:00 05/15/21 02:58 05/15/21 02:59 Temperature Pulse Rate 96 H 96 H 98 H Respiratory Rate Blood Pressure 160/102 H Pulse Oximetry 97 98 95 05/15/21 03:00 Temperature Pulse Rate 101 H Respiratory Rate Blood Pressure Pulse Oximetry 96 Medical Decision Making Lab Data Lab results reviewed: Yes I reviewed the patient's lab results. Result diagrams: 05/15/21 00:23 05/15/21 00:23 Labs: Lab Results 05/15/21 05/15/21 05/15/21 Range/Units 00:23 00:23 00:41 WBC 11.6 H (4.5-11.0) X10^3/uL RBC 5.13 (4.5-5.9) X10^6/uL Hgb 15.7 (13.5-17.5) g/dL Hct 46.8 (41-53) % MCV 91.3 (80-100) fL MCH 30.6 (26-34) PG MCHC 33.6 (30-36) % RDW 13.7 (11.6-14.8) % Plt Count 268 (150-400) X10^3/uL Neut % (Auto) Not Reportable Lymph % (Auto) Not Reportable [place] % (Auto) Not Reportable Eos % (Auto) Not Reportable Baso % (Auto) Not Reportable Lymph # (Auto) Not Reportable [place] # (Auto) Not Reportable Baso # (Auto) Not Reportable Total Counted 100 Seg Neutrophils % 77.0 H (38-70) % Band Neutrophils % 5.0 (3-7) % Lymphocytes % (Manual) 15.0 L (25-45) % Atypical Lymphs % 3.0 H ( - 0) % Neutrophils # (Manual) 9512 H (7614-0090) /uL RBC Morphology Normal morphology Sodium 137 (137-145) mmol/L Potassium 4.2 (3.4-5.1) mmol/L Chloride 104 (98-107) mmol/L Carbon Dioxide 24 (22-32) mmol/L BUN 23 H (9-20) mg/dL Creatinine 0.96 (0.66-1.25) mg/dL Estimated GFR > 60.0 (>60) mL/min BUN/Creatinine Ratio 24.0 H (6-22) Glucose 177 H (80-110) mg/dL Calcium 9.2 (8.4-10.2) mg/dL Total Bilirubin 0.3 (0.2-1.3) mg/dL AST 25 (17-59) IU/L ALT 22 (<50) IU/L Alkaline Phosphatase 102 (38-126) U/L Total Protein 7.1 (6.3-8.2) g/dL Albumin 4.4 (3.5-5.0) g/dL Globulin 2.7 (1.7-4.1) g/dL Albumin/Globulin Ratio 1.6 (1.0-2.8) Lipase 72 (23-300) U/L Urine RBC 1-5/hpf (0-5/HPF) Urine WBC 0-1/hpf (0-5/HPF) Urine Bacteria None seen (None) Ur Culture Indicated? Cult not indicated Urine Dip Bedside Urine Glucose 250 mg/dl Bedside Urine Bilirubin - Negative Bedside Urine Ketone +/- 5 Urine Specific [place] 1.025 Bedside Urine Occult Blood ++ Bedside Urine pH 6.0 Bedside Urine Protein - Negative Bedside Urine Urobilinogen - Negative Bedside Urine Nitrite - Negative Bedside Urine Leukocytes - Negative Esterase Point of care testing: Urine Dip Bedside Urine Glucose 250 mg/dl Bedside Urine Bilirubin - Negative Bedside Urine Ketone +/- 5 Urine Specific [place] 1.025 Bedside Urine Occult Blood ++ Bedside Urine pH 6.0 Bedside Urine Protein - Negative Bedside Urine Urobilinogen - Negative Bedside Urine Nitrite - Negative Bedside Urine Leukocytes - Negative Esterase Imaging Data CT scan - abdomen/pelvis: Radiologist's Impression: Mild left hydronephrosis secondary to a 2 mm stone in the left ureterovesicular junction. Additional small non obstruction urinary bladder stones. Enlarged prostate. Colonic diverticula. ECG Data Attestation: I personally reviewed and interpreted this ECG as follows: Interpretation: Sinus rhythm Ventricular rate 87 First degree AV block with a VT interval 2 1A milliseconds Normal axis Normal QRS Normal QTC No ST T wave changes MDM Narrative Medical decision making narrative: Patient's labs are unremarkable. CT scan does show old left-sided UVJ 2 mm stone which does correspond with the location of his symptoms and also his presenting symptoms. I did discuss this with him. No indication for antibiotics. Will send home with symptom treatment. He was given return precautions and follow-up instructions. He expressed understanding and agreement. Discharge Plan Departure Patient Disposition: Home Clinical Impression: Kidney stones Instructions: DI for Kidney Stones Activity Restrictions/Additional Instructions: The CT scan does show a left-sided kidney stone (ureteral stone). I suspect that this is what is causing your discomfort. You were given a prescription for nausea medicine and pain medicine to have at home just in case he would eat it. Contact your primary doctor for a follow-up. Return to the emergency department for new symptoms to include fevers, pain that is not controlled with the medications, inability to urinate or any other new or worsening symptoms Prescriptions: No Action metoprolol succinate 100 mg tablet extended release 24 hr 100 mg PO QDAY Qty: 90 RF: 3 Eliquis 5 mg tablet 5 mg PO BID RF: 0 triamterene-hydrochlorothiazid 37.5-25 mg capsule 1 cap PO DAILY RF: 0 candesartan 8 mg tablet 8 mg PO DAILY RF: 0 diltiazem HCl [Cardizem CD] 120 mg capsule,extended release 24hr 120 mg PO DAILY Qty: 10 RF: 1 diltiazem HCl [Cardizem] 30 mg tablet 30 mg PO TID PRN (Reason: rapid breakthrough palpitations) Qty: 20 RF: 0 Referrals: Godfrey Thao MD [Primary Care Provider] -
--- NOTE | 2021-05-15 00:17 | DI.CT.S_ITS ---
PROCEDURE: CT ABDOMEN PELVIS W CON INDICATIONS: Left-sided abdominal pain TECHNIQUE: After the administration of intravenous contrast, axial sections acquired from the lung bases to the pubic symphysis. Coronal and sagittal reformats were performed. For radiation dose reduction, the following was used: automated exposure control, adjustment of mA and/or kV according to patient size. COMPARISON: None. FINDINGS: Image quality: Excellent. Lung bases: Unremarkable. Heart: No significant findings. ABDOMEN: Liver: Unremarkable. Gallbladder: Unremarkable. Biliary ducts: Unremarkable. Pancreas: Unremarkable. Spleen: Unremarkable. Adrenal Glands: Unremarkable. Kidneys and Ureters: Left-sided hydronephrosis and hypoperfusion is associated with renal edema and perinephric edema. The left-sided ureter is mildly dilated to the bladder level.. Stomach and Bowel: Stomach, small bowel loops, and colon are unremarkable. Peritoneum: No abnormal intraperitoneal fluid. No free air. Ventral Wall: No hernias. Abdominal Nodes: No retroperitoneal or mesenteric adenopathy by size criteria. Vessels: Aorta and inferior vena cava are normal in size. PELVIS: Pelvic Organs: Unremarkable. Bladder: Unremarkable. Pelvic Nodes: No enlarged lymph nodes. Miscellaneous: No hernias are seen. The left-sided ureteral dilatation is associated with mild Cammy ureteral edema, and at the far distal margin of the left ureter virtually within the lumen of the bladder there is a small 2 x 2.5 mm calculus. There also are 2 small right-sided calculi within the bladder lumen measuring 1.5-2 mm. Bones: Unremarkable. IMPRESSION: Far distal left ureteral stone protruding into the lumen of the bladder on the left, but measuring only 2-2.5 mm. This produces edema mildly enlarging the left kidney, and perinephric edema with reactive hypoperfusion to a mild degree on the left. A stone of this size generally will pass without urologic intervention. There are 2 additional bladder calculi that are small but appear to have previously passed into the bladder but not through the urethra. Chronicity of those stones is indeterminate. Dictated by: Layton Menon M.D. on 05/15/2021 at 8:30 Approved by: Layton Menon M.D. on 05/15/2021 at 8:37
[2021-05-15] MEDS: SODIUM CHLORIDE 0.9% 1,000 ML 1000 ML IV (00:29)
[2021-05-15 00:39] LABS: Alanine Aminotransferase 22 IU/L (<50); Albumin 4.4 g/dL (3.5-5.0); Albumin Globulin Ratio 1.6 (1.0-2.8); Alkaline Phosphatase 102 U/L (38-126); Aspartate Aminotransferase 25 IU/L (17-59); Bilirubin Total 0.3 mg/dL (0.2-1.3); Blood Urea Nitrogen 23 mg/dL (9-20); Calcium 9.2 mg/dL (8.4-10.2); Carbon Dioxide 24 mmol/L (22-32); Chloride 104 mmol/L (98-107); Estimated Glomerular Filt Rate > 60.0 mL/min (>60); Globulin 2.7 g/dL (1.7-4.1); Glucose 177 mg/dL (80-110); HEMOLYSIS 38 (0-50); Hematocrit 46.8 % (41-53); Hemoglobin 15.7 g/dL (13.5-17.5); Lipase 72 U/L (23-300); Mean Corpuscular HGB Conc 33.6 % (30-36); Mean Corpuscular Hemoglobin 30.6 PG (26-34); Mean Corpuscular Volume 91.3 fL (80-100); Platelet Count 268 X10^3/uL (150-400); Potassium 4.2 mmol/L (3.4-5.1); Red Blood Cell Count 5.13 X10^6/uL (4.5-5.9); Red Cell Distribution Width 13.7 % (11.6-14.8); Sodium 137 mmol/L (137-145); Total Protein 7.1 g/dL (6.3-8.2); White Blood Cell Count 11.6 X10^3/uL (4.5-11.0)
[2021-05-15 00:40] LABS: Add Manual Diff / Slide Review YES
[2021-05-15 01:02] LABS: Bacteria Urine None Seen
[2021-05-15 01:26] LABS: Culture Indicated Urine Cult Not Indicated; RBC Urine 1-5/HPF (0-5/HPF); WBC Urine 0-1/HPF (0-5/HPF)
[2021-05-15 01:55] LABS: Total Cells Counted 100
[2021-05-15 01:56] LABS: Neutrophils Absolute Manual 9512 /uL (3000-5900); RBC Morphology Normal Morphology
[2021-05-15] MEDS: HYDROCODONE/ACET 5/325 PREPACK 1 BOTTLE MISC (02:52)
[2021-05-15] MEDS: ONDANSETRON 4 MG ODT PREPACK 1 BOTTLE MISC (02:52)
== END 2021-05-15 03:06 | disposition home or self-care (01) ==
PROVIDERS: Emergency Provider Emergency Medicine; PCP Internal Medicine
DX: N20.0 Calculus of kidney (principal); R11.0 Nausea
CPT/HCPCS: 36415; 74177; 80053; 81003; 81015; 83690; 85007; 85025; 93005; 96360; 96361; 99284

== ENCOUNTER → 2021-11-19 12:18 | Outpatient (CLI) | payer SELFPAY ==
[2021-11-19 12:52] LABS: Appearance Urine UA CLEAR; Bilirubin Urine UA NEGATIVE (NEGATIVE); Color Urine UA YELLOW; Glucose Urine UA NEGATIVE (Negative); Ketones Urine UA NEGATIVE (NEGATIVE); Leukocyte Esterase Urine UA NEGATIVE (NEGATIVE); Nitrite Urine UA NEGATIVE (Negative); Occult Blood Urine UA 2+ (Negative); Protein Urine UA NEGATIVE (Negative); Urobilinogen Urine UA 0.2 E.U./dL (0.2); pH Urine UA 6.5 (4.5-8.0)
[2021-11-19 13:06] LABS: RBC Urine 1-5/HPF (0-5/HPF); Squamous Epithelial Cell Urine 0-1 /HPF (0-5/HPF); WBC Urine 0-1/HPF (0-5/HPF)
[2021-11-19 13:07] LABS: Bacteria Urine None Seen; Culture Indicated Urine Cult Not Indicated
== END ==
PROVIDERS: Family Provider Internal Medicine; Referring Provider Urology; Visit Provider Urology
DX: R39.9 Unspecified symptoms and signs involving the genitourinary system (principal)
CPT/HCPCS: 81001